=== PATIENT | female | born 1955 | race Caucasian/White ===

== ENCOUNTER 2024-03-20 09:50 | Emergency (ER) | payer MEDICARE, OTHER, SELFPAY ==
--- NOTE | ~2024-03-20 | XR_ITS ---
XR knee LT 3V 03/20/2024 12:07 Indication: Left knee pain Procedure: 3 views left knee Comparison: No prior studies for comparison. Findings: No acute fracture or traumatic malalignment. Small joint effusion. There is a left total kn ee arthroplasty, well seated. No foreign bodies. Impression: 1: No acute bone or joint abnormality. Reviewed, dictated and finalized at location B. Impression: 1: No acute bone or joint abnormality.
--- NOTE | ~2024-03-20 | US_ITS ---
EXAMINATION: US venous doppler [facility] DATE: 03/20/2024 11:44 INDICATION: Left lower limb pain. TECHNIQUE: Grayscale ultrasound images without and with compression and Doppler ultrasound images of the left lower extremity veins were obtained. COMPARISON: None. FINDINGS: The visualized portions of left common femoral vein, profunda (deep) femoral vein, femoral vein, popl iteal vein, peroneal veins, posterior tibial veins, and greater saphenous vein outflow are patent. IMPRESSION: 1. No deep venous thrombosis. Reviewed, dictated and finalized at location A.
[2024-03-20 10:01] VITALS: BP 139/77; PULSE 64; RESP 18; TEMP 36.4; O2SAT 99
--- NOTE | 2024-03-20 10:12 | ECG_ITS ---
Test Date: 2024-03-20 10:45:48 Measurements Intervals [place] Rate: 58 P: 43 MS: 164 QRS: 29 QRSD: 88 T: 60 QT: 411 QTc: 404 Interpretive Statements SINUS BRADYCARDIA OTHERWISE NORMAL ECG No previous ECG available for comparison Electronically Signed On 03-20-2024 15:57:38 CDT by Naren Butler M.D.
[2024-03-20 10:16] LABS: Glucose Point of Care 163 mg/dl (65-105)
[2024-03-20 10:43] LABS: Basophils Percent Auto 0.5 % (0.2-1.2); Eosinophils Absolute Auto 0.1 K/mm3 (0-0.3); Eosinophils Percent Auto 0.7 % (0-4.4); Hematocrit 38.4 % (37.0-47.0); Hemoglobin 13.4 g/dL (12.0-15.0); Immature Granulocyte Absolute 0.02 K/mm3 (0.00-0.031); Immature Granulocyte Percent A 0.2 % (0-0.5); Lymphocytes Absolute Auto 1.01 K/mm3 (0.9-3.2); Lymphocytes Percent Auto 11.8 % (18.3-44.2); Mean Corpuscular HGB Conc 34.9 g/dl (32-36); Mean Corpuscular Hemoglobin 32.6 pg (26-34); Mean Corpuscular Volume 93.4 fl (80-100); Mean Platelet Volume 9.3 fl (7.4-10.4); Monocytes Absolute Auto 0.6 K/mm3 (0.1-0.6); Monocytes Percent Auto 7.1 % (2.6-8.5); Neutrophils Absolute Auto 6.8 K/mm3 (1.3-6.7); Neutrophils Percent Auto 79.7 % (45.5-73.1); Platelet Count Result 265 k/mm3 (150-375); Red Blood Count 4.11 M/mm3 (4.2-5.4); Red Cell Distribution Width 14.2 % (11.5-14.5); White Blood Count 8.6 K/mm3 (4.5-10.0)
[2024-03-20 10:51] LABS: Prothrombin Time 13.9 Seconds (11.1-14.7)
[2024-03-20 11:00] LABS: Alanine Aminotransferase 22 U/L (6-35); Albumin Level 4.2 g/dL (3.5-5.1); Alkaline Phosphatase 75 U/L (38-126); Anion Gap 8 mmol/L (4-12); Aspartate Amino Transferase 25 U/L (14-36); Bilirubin,Total 0.6 mg/dL (0.2-1.3); Blood Urea Nitrogen 10 mg/dL (7-17); Carbon Dioxide 22 mmol/L (22-30); Chloride 97 mmol/L (98-107); Estimated CRCL calculation 58 ml/min; Estimated Glomerular Filt Rate > 60; Glucose 162 mg/dL (65-110); Potassium 4.5 mmol/L (3.4-5.0); Sodium 127 mmol/L (137-145)
--- NOTE | 2024-03-20 11:27 | ED.EXTPRO ---
HPI - Extremity Problem General Chief complaint: Extremity Problem,Nontraumatic Stated complaint: left leg pain, near syncope Time Seen by Provider: 03/20/24 11:10 Source: patient and family Mode of arrival: ambulatory Limitations: no limitations History of Present Illness HPI Narrative: Patient presents with left leg/knee pain. History of bilateral knee replacement but no acute injury/trauma. Endorses having pain behind her knee and behind the proximal tibia. History of Factor V Leiden, not on anti anticoagulation/blood thinners/aspirin. Denies shortness of breath. This morning after drinking water while seated, she stood up and became lightheaded and broke out in a cold sweat. Not taking anything for pain except tried aspercreme last night. Related Data Allergies Allergy/AdvReac Type Severity Reaction Status Date / Time erythromycin base Allergy Unknown Verified 04/23/18 17:13 Penicillins Allergy Unknown Verified 04/23/18 17:13 quinine Allergy Unknown Verified 04/23/18 17:13 CEFAZOLIN SODIUM Allergy Unknown Uncoded 04/23/18 17:13 [facility] Past Medical History Medical History (Updated 03/21/24 @ 08:51 by Amna Encarnacion MD) Factor V Leiden Surgical History Surgical History (Updated 03/21/24 @ 08:51 by Amna Encarnacion MD) History of bilateral knee replacement Exam Narrative: GENERAL: Well-appearing, well-nourished, and in no acute distress. HEAD: Normocephalic, atraumatic. EYES: Non injected, non icteric ENT: Nares clear, no rhinorrhea or epistaxis. NECK: Supple. CHEST: Speaking in full sentences. No respiratory distress. HEART: Regular rate and rhythm. . ABDOMEN: Soft, nondistended. EXTREMITIES: Normal range of motion. No edema. Well healed linear scars overlying bilateral knees. Mild TTP behind posterior knee and behind proximal tibia on palpation without overlying skin changes or firmness/induration. No ecchymosis. No palpable cystic structure. No shoaib effusion. SKIN: Warm, dry, no rash. NEURO: No focal deficits. Alert and oriented x3. PSYCH: Normal mood and affect. Course Vital Signs Vital signs: Vital Signs Temperature 97.5 F L 03/20/24 10:01 Pulse Rate 64 03/20/24 10:01 Respiratory Rate 18 03/20/24 10:01 Blood Pressure 139/77 03/20/24 10:01 Pulse Oximetry 99 03/20/24 10:01 Oxygen Delivery Room Air 03/20/24 10:01 Temperature 97.5 F L 03/20/24 10:01 Pulse Rate 57 L 03/20/24 13:14 Respiratory Rate 18 03/20/24 13:14 Blood Pressure 136/67 03/20/24 13:14 Pulse Oximetry 98 03/20/24 13:14 Oxygen Delivery Room Air 03/20/24 10:01 MDM - Extremity (Nontraumatic) MDM Narrative Medical decision making narrative: Patient presents with left leg/knee pain. It is behind their knee and slightly extends into proximal calf/posterior tibia. In the emergency department they are afebrile with vital signs within normal limits. considered septic joint especially given the presence of prior surgery/hardware however patient is able to demonstrate some ROM. No overlying skin changes to suspect cellulitis/abscess. Otherwise reassuring physical exam , neurovascularly intact. Imaging negative for acute process. Patient has hyponatremia. Sodium of 127 corrects partially but only to 128 in the setting of her hyperglycemia. No prior for comparison. Patient is reassessed. states she is feeling better. Otherwise appears aympatomatic. Possibly lab error. Advised she follow up with her PCP for this and leg if pain persists (hers is retiring but she receives care through [facility]). She verifies understanding and is in agreement. Discharged in stable condition. Differential Diagnosis Differential diagnosis: Likely deep vein thrombosis of lower extremity and other ( Hardware malfunction, sprain / strain, popliteal cyst) Lab Data Attestation: I reviewed the patient's lab results. 03/20/24 10:38 03/20/24 10:38 Labs: Lab Results
[2024-03-20] MEDS: HYDROcodone/acetaminophen (*CRX) 5-325 MG TABLET 1 TAB PO (11:31)
[2024-03-20 12:00] LABS: Troponin I < 0.012 ng/mL (0.000-0.034)
[2024-03-20 13:14] VITALS: BP 136/67; PULSE 57; RESP 18; O2SAT 98
== END 2024-03-20 13:15 | disposition home or self-care (01) ==
PROVIDERS: Emergency Provider Student in an Organized Health Care Education/Training Program
DX: M25.562 Pain in left knee (principal); E87.1 Hypo-osmolality and hyponatremia; D68.51 Activated protein C resistance; Z96.653 Presence of artificial knee joint, bilateral; R00.1 Bradycardia, unspecified
CPT/HCPCS: 36415; 73562; 80053; 82948; 84484; 85025; 85610; 93005; 93971; 99284; A9270